=== PATIENT | male | born 1950 | race Caucasian/White ===

== ENCOUNTER → 2019-07-15 | Outpatient (CLI) | payer MEDICARE, OTHER ==
[~2019-07-15] MED LIST: ACYC-108 PO; ALBUTEROL 0.083% INH; ATEN50TA PO; FLONASE INH; GBPN100C PO; HOLD METFORMIN - RECEIVED CONTRAST 20 ML VIAL IV SCH; HYDR50TA3 PO; IOHEXOL 350 MG/ML 100 ML (OMNIPAQUE 350) VIAL IV ONE; LISI20TA PO; NS 100 ML (IVPB) BAG IV ONE; OXYC-12 PO; RANITIDINE PO; RT-ALBUTEROL SULF 2.5 MG/3 ML PRE-MIX VIAL INH ONE; SIMV40TA4 PO; SULI200T4 PO; SYMBICORT INH; TYLENOL W/CODEINE PO; VARE1TAB17 PO
[2019-07-15 14:10] LABS: CREATININE SERUM 1.2 MG/DL (0.60-1.30)
--- NOTE | 2019-07-15 15:24 | Diagnostic Imaging Report ---
PROCEDURE: CT chest with contrast only. TECHNIQUE: Multiple contiguous axial images were obtained through the chest after administration of intravenous contrast. Auto Exposure Controls were utilized during the CT exam to meet ALARA standards for radiation dose reduction. INDICATION: Cough and shortness of breath. COMPARISON: There are no prior studies available for comparison. FINDINGS: The heart size is within normal limits. There are coronary artery calcifications evident. The aorta is not abnormally dilated, and there is no sign of a dissection. There is no defect within the pulmonary arteries to indicate a pulmonary embolus. There are mild emphysematous changes involving the lung apices. There is also a small 3.6 mm parenchymal density in the right mid lung anteriorly (image 81/181). This finding is of uncertain etiology although most likely benign. There is also a smoothly marginated 6.4 mm nodule in the periphery of the left upper lung. I suspect that this is a benign process as well. Even so, a three-month followup CT chest exam would be recommended for further evaluation. There is no evidence for failure, pneumonia, or for a pleural effusion. The sections through the upper abdomen fail to show any sign of an acute abnormality. The liver is of lower density than usually seen. This does suggest fatty metamorphosis. The bone windows show no evidence for a fracture or for a destructive lesion. IMPRESSION: 1. There is no evidence for an acute cardiopulmonary abnormality. 2. The nodule in the left lung and the parenchymal density in the right mid lung are most likely benign. Recommendations as above. Dictated by: Dictated on workstation # [id number]
== END ==
LOC: RT 13:30
PROVIDERS: ATTEND Nurse Practitioner Family
DX: J30.9 Allergic rhinitis, unspecified (principal); G47.10 Hypersomnia, unspecified; J44.9 Chronic obstructive pulmonary disease, unspecified; Z72.0 Tobacco use
CPT/HCPCS: 36415; 71260; 82565; 84520; 94060; 94726; 94729